=== PATIENT | male | born 1945 | race Caucasian/White ===

== ENCOUNTER 2018-08-28 20:59 | Inpatient (IN) | payer MEDICARE, OTHER ==
[~2018-08-28] VITALS: Ht 162.6 cm; Wt 115.6 kg
[2018-08-28] MEDS ORDERED: AMPICILLIN/SULBACTAM 3 GM in SODIUM CHLORIDE 0.9% 100 ML IV ONE (21:30)
[2018-08-28] MEDS ORDERED: VANCOMYCIN PER PHARMACY MC PRN (21:30)
[2018-08-28] MEDS ORDERED: SODIUM CHLORIDE FLUSH 10ML SYR IVF ONE (21:30)
[2018-08-28] MEDS ORDERED: VANCOMYCIN 1,700 MG in SODIUM CHLORIDE 0.9% 250 ML IV ONE (22:00)
[2018-08-28 22:02] LABS: BASOPHILS # (AUTO) 0.04 x10^3/uL (0-0.1); BASOPHILS % (AUTO) 1 % (0-1); EOSINOPHILS # (AUTO) 0.32 x10^3/uL (0-0.4); EOSINOPHILS % (AUTO) 4 % (1-7); LYMPHOCYTES # (AUTO) 1.25 x10^3/uL (1-3.4); LYMPHOCYTES % (AUTO) 15 % (22-44); MD NO; MEAN CORPUSCULAR HEMOGLOBIN 26.5 pg (27.5-34.5); MEAN CORPUSCULAR VOLUME 82.8 fL (81-97); MEAN PLATELET VOLUME 9.2 fL (7.4-10.4); MONOCYTES # (AUTO) 0.68 x10^3/uL (0.2-0.8); MONOCYTES % (AUTO) 8 % (2-9); NEUTROPHILS # (AUTO) 5.95 x10^3/uL (1.8-6.8); NEUTROPHILS % (AUTO) 72 % (42-75); PLATELET COUNT 215 x10^3/uL (130-400); RED BLOOD COUNT 5.53 x10^6/uL (4.38-5.82); RED CELL DISTRIBUTION WIDTH 16.3 % (9.4-14.8)
[2018-08-28 22:10] LABS: INTERNATIONAL NORMALIZED RATIO 1.24 (0.93-1.1)
[2018-08-28 22:13] LABS: ANION GAP 10 mmol/L (5-15); CHLORIDE 109 mmol/L (98-107)
[2018-08-28 22:18] LABS: ALANINE AMINOTRANSFERASE 24 U/L (12-78); ALKALINE PHOSPHATASE 92 U/L (45-117); BILIRUBIN,TOTAL 0.6 mg/dL (0.2-1.0); CREATININE 0.94 mg/dL (0.7-1.3); TOTAL PROTEIN 6.8 g/dL (6.4-8.2); TROPONIN I 0.025 ng/mL (0.000-0.045)
[2018-08-28] MEDS ORDERED: FUROSEMIDE 20 MG/2 ML IV ONE (22:30)
[2018-08-28] MEDS ORDERED: FUROSEMIDE 20 MG/2 ML ONE (22:59)
[2018-08-29] MEDS ORDERED: PHARMACOKINETIC MONITORING MC PRN (01:00)
[2018-08-29] MEDS ORDERED: IBUPROFEN 600 MG TABLET PO PRN (01:00)
[2018-08-29] MEDS ORDERED: DOCUSATE 100 MG CAPSULE PO PRN (01:00)
[2018-08-29] MEDS ORDERED: ONDANSETRON ODT 4 MG PO PRN (01:00)
[2018-08-29] MEDS ORDERED: VANCOMYCIN PER PHARMACY MC PRN (01:00)
[2018-08-29] MEDS ORDERED: ACETAMINOPHEN 325 MG TABLET PO PRN (01:00)
[2018-08-29] MEDS ORDERED: ENALAPRILAT 1.25 MG/ML, 2ML IVPush PRN (01:00)
[2018-08-29] MEDS ORDERED: FUROSEMIDE 20 MG/2 ML IV ONE (01:30)
[2018-08-29] MEDS ORDERED: PHARMACOKINETIC CONSULTATION MC ONE (01:30)
[2018-08-29] MEDS ORDERED: FUROSEMIDE 40 MG/4 ML IV ONE (01:35)
[2018-08-29] MEDS: INSULIN LISPRO 100 UNITS/ML, PEN SQ-INSULIN SCH ×5 (01:56→21:04)
[2018-08-29 02:25] VITALS: BP 164/82
[2018-08-29] MEDS: AMPICILLIN/SULBACTAM 3 GM in SODIUM CHLORIDE 0.9% 100 ML IV SCH ×3 (05:30→23:15)
[2018-08-29] MEDS: ENOXAPARIN 40 MG/0.4 ML SQ SCH (05:30)
[2018-08-29 07:09] VITALS: BP 152/81
[2018-08-29] MEDS: FUROSEMIDE 40 MG/4 ML IV SCH ×2 (08:11→17:02)
[2018-08-29] MEDS ORDERED: GLIP10TA13 PO (12:21)
[2018-08-29] MEDS ORDERED: CARV12.52 PO (12:21)
[2018-08-29] MEDS ORDERED: LISI30TA4 PO (12:21)
[2018-08-29] MEDS ORDERED: METF10007 PO (12:21)
[2018-08-29] MEDS ORDERED: FURO20TA3 PO (12:21)
[2018-08-29] MEDS ORDERED: GABA300C10 PO (12:21)
[2018-08-29 13:11] VITALS: BP 135/80
[2018-08-29] MEDS: LISINOPRIL 10 MG TABLET PO SCH (13:35)
[2018-08-29 14:02] LABS: HEMOGLOBIN A1C 10.7 % (4.2-6.3)
[2018-08-29 18:28] VITALS: BP 92/62
[2018-08-29] MEDS: CARVEDILOL 12.5 MG TABLET PO SCH (18:29)
[2018-08-29] MEDS: GABAPENTIN 300 MG CAPSULE PO SCH (21:02)
[2018-08-29] MEDS: VANCOMYCIN 2,000 MG in SODIUM CHLORIDE 0.9% 500 ML IV SCH (21:06)
[2018-08-30 01:18] VITALS: BP 120/71
[2018-08-30] MEDS: ENOXAPARIN 40 MG/0.4 ML SQ SCH (05:54)
[2018-08-30] MEDS: CARVEDILOL 12.5 MG TABLET PO SCH ×2 (05:54→18:16)
[2018-08-30] MEDS: AMPICILLIN/SULBACTAM 3 GM in SODIUM CHLORIDE 0.9% 100 ML IV SCH ×3 (05:55→22:41)
[2018-08-30 06:11] LABS: BASOPHILS # (AUTO) 0.04 x10^3/uL (0-0.1); BASOPHILS % (AUTO) 0 % (0-1); EOSINOPHILS # (AUTO) 0.39 x10^3/uL (0-0.4); EOSINOPHILS % (AUTO) 4 % (1-7); LYMPHOCYTES % (AUTO) 13 % (22-44); MD NO; MEAN CORPUSCULAR HGB CONC 32.3 g/dL (33.2-36.2); MEAN CORPUSCULAR VOLUME 83.7 fL (81-97); MONOCYTES # (AUTO) 0.83 x10^3/uL (0.2-0.8); MONOCYTES % (AUTO) 9 % (2-9); NEUTROPHILS # (AUTO) 6.63 x10^3/uL (1.8-6.8); NEUTROPHILS % (AUTO) 73 % (42-75); PLATELET COUNT 199 x10^3/uL (130-400); RED BLOOD COUNT 5.33 x10^6/uL (4.38-5.82); RED CELL DISTRIBUTION WIDTH 15.9 % (9.4-14.8)
[2018-08-30 06:23] LABS: ANION GAP 6 mmol/L (5-15); CALCIUM 7.9 mg/dL (8.5-10.1); CHLORIDE 103 mmol/L (98-107)
[2018-08-30 06:25] LABS: CREATININE 0.89 mg/dL (0.7-1.3)
[2018-08-30] MEDS: INSULIN LISPRO 100 UNITS/ML, PEN SQ-INSULIN SCH ×4 (07:00→20:53)
[2018-08-30 07:14] VITALS: BP 118/65
[2018-08-30] MEDS: GABAPENTIN 300 MG CAPSULE PO SCH (07:56)
[2018-08-30] MEDS: FUROSEMIDE 40 MG/4 ML IV SCH ×2 (07:56→16:49)
[2018-08-30] MEDS: LISINOPRIL 10 MG TABLET PO SCH (07:56)
[2018-08-30] MEDS ORDERED: MAGNESIUM SULFATE PMX 2GM/50ML 50 ML IV ONE (09:30)
[2018-08-30] MEDS: GUAIFENESIN ER 600 MG TABLET PO SCH ×2 (10:52→20:31)
[2018-08-30 13:54] VITALS: BP 116/74
[2018-08-30 18:15] VITALS: BP 144/79
[2018-08-30 20:20] VITALS: BP 101/64
[2018-08-30] MEDS: VANCOMYCIN 2,000 MG in SODIUM CHLORIDE 0.9% 500 ML IV SCH (20:31)
[2018-08-31 01:28] VITALS: BP 134/77
[2018-08-31] MEDS: AMPICILLIN/SULBACTAM 3 GM in SODIUM CHLORIDE 0.9% 100 ML IV SCH (06:39)
[2018-08-31] MEDS: ENOXAPARIN 40 MG/0.4 ML SQ SCH (06:39)
[2018-08-31] MEDS: CARVEDILOL 12.5 MG TABLET PO SCH ×2 (06:39→17:52)
[2018-08-31] MEDS: INSULIN LISPRO 100 UNITS/ML, PEN SQ-INSULIN SCH ×4 (07:00→21:23)
[2018-08-31 07:32] VITALS: BP 125/72
[2018-08-31] MEDS: GUAIFENESIN ER 600 MG TABLET PO SCH ×2 (09:22→21:22)
[2018-08-31] MEDS: FUROSEMIDE 40 MG/4 ML IV SCH ×3 (09:22→21:21)
[2018-08-31] MEDS: ASPIRIN 81 MG TABLET CHEW PO SCH (09:22)
[2018-08-31] MEDS: LISINOPRIL 10 MG TABLET PO SCH (09:22)
[2018-08-31] MEDS ORDERED: MAGNESIUM SULFATE PMX 2GM/50ML 50 ML IV ONE (10:30)
[2018-08-31 14:11] VITALS: BP 114/64
[2018-08-31 19:15] VITALS: BP 120/74
[2018-08-31] MEDS: ATORVASTATIN 40 MG TABLET PO SCH (21:22)
[2018-09-01 05:48] VITALS: BP 133/84
[2018-09-01] MEDS: CARVEDILOL 12.5 MG TABLET PO SCH ×2 (05:53→17:05)
[2018-09-01] MEDS: ENOXAPARIN 40 MG/0.4 ML SQ SCH (05:53)
[2018-09-01] MEDS: FUROSEMIDE 40 MG/4 ML IV SCH ×3 (05:59→17:04)
[2018-09-01 06:40] VITALS: BP 121/64
[2018-09-01] MEDS: LISINOPRIL 10 MG TABLET PO SCH (08:27)
[2018-09-01] MEDS: GUAIFENESIN ER 600 MG TABLET PO SCH ×2 (08:27→21:59)
[2018-09-01] MEDS: ASPIRIN 81 MG TABLET CHEW PO SCH (08:27)
[2018-09-01] MEDS: INSULIN LISPRO 100 UNITS/ML, PEN SQ-INSULIN SCH ×4 (08:27→22:00)
[2018-09-01 09:31] LABS: ALANINE AMINOTRANSFERASE 18 U/L (12-78); ALBUMIN 2.8 g/dL (3.4-5.0); ANION GAP 4 mmol/L (5-15); CALCIUM 8.1 mg/dL (8.5-10.1); CHLORIDE 95 mmol/L (98-107); CREATININE 1.01 mg/dL (0.7-1.3)
[2018-09-01 09:33] LABS: ALKALINE PHOSPHATASE 85 U/L (45-117); BILIRUBIN,TOTAL 0.8 mg/dL (0.2-1.0); TOTAL PROTEIN 6.9 g/dL (6.4-8.2)
[2018-09-01 14:00] VITALS: BP 117/72
[2018-09-01 19:16] VITALS: BP 104/64
[2018-09-01] MEDS: ATORVASTATIN 40 MG TABLET PO SCH (22:00)
[2018-09-01] MEDS: MAGNESIUM OXIDE 400 MG TABLET PO SCH (22:00)
[2018-09-02] VITALS (9 sets, daily range): BP systolic 106–132; BP diastolic 61–85
[2018-09-02 05:36] LABS: CHLORIDE 96 mmol/L (98-107)
[2018-09-02 05:39] LABS: BASOPHILS # (AUTO) 0.04 x10^3/uL (0-0.1); BASOPHILS % (AUTO) 0 % (0-1); EOSINOPHILS # (AUTO) 0.44 x10^3/uL (0-0.4); EOSINOPHILS % (AUTO) 4 % (1-7); LYMPHOCYTES # (AUTO) 1.17 x10^3/uL (1-3.4); LYMPHOCYTES % (AUTO) 12 % (22-44); MD NO; MEAN CORPUSCULAR HEMOGLOBIN 26.9 pg (27.5-34.5); MEAN CORPUSCULAR HGB CONC 32.4 g/dL (33.2-36.2); MEAN CORPUSCULAR VOLUME 82.9 fL (81-97); MEAN PLATELET VOLUME 8.7 fL (7.4-10.4); MONOCYTES # (AUTO) 0.95 x10^3/uL (0.2-0.8); MONOCYTES % (AUTO) 10 % (2-9); NEUTROPHILS # (AUTO) 7.25 x10^3/uL (1.8-6.8); NEUTROPHILS % (AUTO) 74 % (42-75); PLATELET COUNT 210 x10^3/uL (130-400); RED BLOOD COUNT 5.27 x10^6/uL (4.38-5.82); RED CELL DISTRIBUTION WIDTH 16.1 % (9.4-14.8)
[2018-09-02 05:47] LABS: ANION GAP 8 mmol/L (5-15); CALCIUM 8.3 mg/dL (8.5-10.1); CREATININE 0.97 mg/dL (0.7-1.3)
[2018-09-02 05:48] LABS: ALANINE AMINOTRANSFERASE 17 U/L (12-78); ALBUMIN 2.6 g/dL (3.4-5.0); ALKALINE PHOSPHATASE 82 U/L (45-117); BILIRUBIN,TOTAL 0.7 mg/dL (0.2-1.0); TOTAL PROTEIN 6.7 g/dL (6.4-8.2)
[2018-09-02] MEDS: FUROSEMIDE 40 MG/4 ML IV SCH ×3 (06:03→18:00)
[2018-09-02] MEDS: CARVEDILOL 12.5 MG TABLET PO SCH (06:03)
[2018-09-02] MEDS: ENOXAPARIN 40 MG/0.4 ML SQ SCH (06:03)
[2018-09-02] MEDS: LISINOPRIL 10 MG TABLET PO SCH (08:53)
[2018-09-02] MEDS: GUAIFENESIN ER 600 MG TABLET PO SCH ×2 (08:53→20:07)
[2018-09-02] MEDS: INSULIN LISPRO 100 UNITS/ML, PEN SQ-INSULIN SCH ×4 (08:53→20:13)
[2018-09-02] MEDS: MAGNESIUM OXIDE 400 MG TABLET PO SCH ×2 (08:54→20:07)
[2018-09-02] MEDS: ASPIRIN 81 MG TABLET CHEW PO SCH (08:54)
[2018-09-02] MEDS: CARVEDILOL 6.25 MG TABLET PO SCH (18:00)
[2018-09-02] MEDS: ATORVASTATIN 40 MG TABLET PO SCH (20:07)
[2018-09-02] MEDS ORDERED: INSULIN GLARGINE 100 UNITS/ML, PEN SQ-INSULIN SCH (21:00)
[2018-09-03 00:40] VITALS: BP 115/70
[2018-09-03] MEDS: FUROSEMIDE 40 MG/4 ML IV SCH ×3 (05:22→20:10)
[2018-09-03] MEDS: ENOXAPARIN 40 MG/0.4 ML SQ SCH (05:23)
[2018-09-03] MEDS: CARVEDILOL 6.25 MG TABLET PO SCH ×2 (05:23→17:22)
[2018-09-03] MEDS: INSULIN LISPRO 100 UNITS/ML, PEN SQ-INSULIN SCH ×4 (07:00→20:35)
[2018-09-03 07:14] LABS: ALANINE AMINOTRANSFERASE 17 U/L (12-78); ALBUMIN 2.7 g/dL (3.4-5.0); ANION GAP 7 mmol/L (5-15); CALCIUM 8.1 mg/dL (8.5-10.1); CHLORIDE 96 mmol/L (98-107); CREATININE 0.97 mg/dL (0.7-1.3)
[2018-09-03 07:16] LABS: ALKALINE PHOSPHATASE 92 U/L (45-117); BILIRUBIN,TOTAL 0.7 mg/dL (0.2-1.0)
[2018-09-03 08:26] VITALS: BP 112/72
[2018-09-03] MEDS: GUAIFENESIN ER 600 MG TABLET PO SCH ×2 (08:32→20:10)
[2018-09-03] MEDS: MAGNESIUM OXIDE 400 MG TABLET PO SCH ×2 (08:32→20:11)
[2018-09-03] MEDS: ASPIRIN 81 MG TABLET CHEW PO SCH (08:32)
[2018-09-03] MEDS: LISINOPRIL 10 MG TABLET PO SCH (08:32)
[2018-09-03 11:20] VITALS: BP 127/74
[2018-09-03 14:45] VITALS: BP 113/72
[2018-09-03] MEDS: ATORVASTATIN 40 MG TABLET PO SCH (20:10)
[2018-09-03 20:30] VITALS: BP 123/72
[2018-09-03] MEDS ORDERED: INSULIN GLARGINE 100 UNITS/ML, PEN SQ-INSULIN SCH (21:00)
[2018-09-04 03:39] VITALS: BP 122/73
[2018-09-04 06:20] LABS: CHLORIDE 94 mmol/L (98-107)
[2018-09-04 06:23] LABS: ANION GAP 7 mmol/L (5-15); CALCIUM 8.2 mg/dL (8.5-10.1); CREATININE 0.97 mg/dL (0.7-1.3)
[2018-09-04] MEDS: ENOXAPARIN 40 MG/0.4 ML SQ SCH (06:27)
[2018-09-04] MEDS: CARVEDILOL 6.25 MG TABLET PO SCH ×2 (06:27→17:13)
[2018-09-04] MEDS: INSULIN LISPRO 100 UNITS/ML, PEN SQ-INSULIN SCH ×4 (07:00→21:52)
[2018-09-04 07:16] VITALS: BP 103/58
[2018-09-04] MEDS: FUROSEMIDE 40 MG/4 ML IV SCH ×2 (10:03→21:50)
[2018-09-04] MEDS: GUAIFENESIN ER 600 MG TABLET PO SCH ×2 (10:03→21:49)
[2018-09-04] MEDS: MAGNESIUM OXIDE 400 MG TABLET PO SCH ×2 (10:03→21:49)
[2018-09-04] MEDS: ASPIRIN 81 MG TABLET CHEW PO SCH (10:03)
[2018-09-04 10:10] VITALS: BP 127/75
[2018-09-04] MEDS: LISINOPRIL 10 MG TABLET PO SCH (10:13)
[2018-09-04] MEDS: GABAPENTIN 300 MG CAPSULE PO SCH ×3 (11:22→21:49)
[2018-09-04 13:58] VITALS: BP 103/68
[2018-09-04 20:38] VITALS: BP 130/69
[2018-09-04] MEDS: ATORVASTATIN 40 MG TABLET PO SCH (21:50)
[2018-09-04] MEDS: INSULIN GLARGINE 100 UNITS/ML, PEN SQ-INSULIN SCH (21:52)
[2018-09-05 01:01] VITALS: BP 135/72
[2018-09-05 05:34] LABS: ALBUMIN 2.8 g/dL (3.4-5.0); ANION GAP 8 mmol/L (5-15); CALCIUM 8.7 mg/dL (8.5-10.1); CHLORIDE 93 mmol/L (98-107)
[2018-09-05 05:38] LABS: ALANINE AMINOTRANSFERASE 19 U/L (12-78); ALKALINE PHOSPHATASE 101 U/L (45-117); BILIRUBIN,TOTAL 0.8 mg/dL (0.2-1.0); CREATININE 1.03 mg/dL (0.7-1.3); TOTAL PROTEIN 7.5 g/dL (6.4-8.2)
[2018-09-05] MEDS: CARVEDILOL 6.25 MG TABLET PO SCH ×3 (05:56→17:48)
[2018-09-05] MEDS: ENOXAPARIN 40 MG/0.4 ML SQ SCH (05:56)
[2018-09-05 07:49] VITALS: BP 125/76
[2018-09-05] MEDS: INSULIN LISPRO 100 UNITS/ML, PEN SQ-INSULIN SCH ×4 (07:54→21:05)
[2018-09-05] MEDS: FUROSEMIDE 40 MG/4 ML IV SCH (07:54)
[2018-09-05] MEDS: GUAIFENESIN ER 600 MG TABLET PO SCH ×2 (07:55→20:58)
[2018-09-05] MEDS: GABAPENTIN 300 MG CAPSULE PO SCH ×3 (07:55→20:58)
[2018-09-05] MEDS: LISINOPRIL 10 MG TABLET PO SCH (07:55)
[2018-09-05] MEDS: ASPIRIN 81 MG TABLET CHEW PO SCH (07:55)
[2018-09-05] MEDS: MAGNESIUM OXIDE 400 MG TABLET PO SCH ×2 (07:55→20:58)
[2018-09-05] MEDS ORDERED: LIDOCAINE GEL 2%, 5ML TP ONE (11:30)
[2018-09-05] MEDS ORDERED: LIDOCAINE JELLY 2%, 30GM TP ONE (12:30)
[2018-09-05 14:00] VITALS: BP 131/76
[2018-09-05] MEDS ORDERED: LIDOCAINE JELLY 2%, 30GM TP PRN (16:00)
[2018-09-05] MEDS ORDERED: FUROSEMIDE 40 MG TABLET PO SCH (17:00)
[2018-09-05 17:49] VITALS: BP 121/70
[2018-09-05 20:12] VITALS: BP 111/66
[2018-09-05] MEDS: ATORVASTATIN 40 MG TABLET PO SCH (20:58)
[2018-09-05] MEDS: INSULIN GLARGINE 100 UNITS/ML, PEN SQ-INSULIN SCH (21:05)
[2018-09-06 02:55] VITALS: BP 120/71
[2018-09-06] MEDS: ENOXAPARIN 40 MG/0.4 ML SQ SCH (06:40)
[2018-09-06] MEDS: INSULIN LISPRO 100 UNITS/ML, PEN SQ-INSULIN SCH ×2 (06:46→11:35)
[2018-09-06 08:05] VITALS: BP 111/71
[2018-09-06] MEDS: ASPIRIN 81 MG TABLET CHEW PO SCH (08:26)
[2018-09-06] MEDS: LISINOPRIL 10 MG TABLET PO SCH (08:26)
[2018-09-06] MEDS: GUAIFENESIN ER 600 MG TABLET PO SCH (08:27)
[2018-09-06] MEDS: GABAPENTIN 300 MG CAPSULE PO SCH (08:27)
[2018-09-06] MEDS: CARVEDILOL 6.25 MG TABLET PO SCH (08:27)
[2018-09-06] MEDS: MAGNESIUM OXIDE 400 MG TABLET PO SCH (08:27)
[2018-09-06] MEDS ORDERED: FUROSEMIDE 40 MG TABLET PO SCH (09:00)
[2018-09-06] MEDS ORDERED: FURO40TA6 PO (10:55)
[2018-09-06] MEDS ORDERED: ATOR40TA78 PO (10:55)
[2018-09-06] MEDS ORDERED: CARV6.2512 PO (10:55)
[2018-09-06] MEDS ORDERED: MAGN400T50 PO (10:55)
[2018-09-06] MEDS ORDERED: ASPI-515 PO (10:55)
[2018-09-06] MEDS ORDERED: GABA300C10 PO (10:55)
[2018-09-06 12:30] VITALS: BP 103/51
== END 2018-09-06 17:02 | disposition home health service (06) | DRG 291 ==
LOC: ED 21:36 → EDIP 22:53 → 5SO 08-29 00:28
PROVIDERS: ADMIT Hospitalist; ATTEND Hospitalist
DX: I11.0 Hypertensive heart disease with heart failure (principal); J96.21 Acute and chronic respiratory failure with hypoxia; E46 Unspecified protein-calorie malnutrition; E87.3 Alkalosis; I47.2 Ventricular tachycardia; Z68.41 Body mass index [BMI] 40.0-44.9, adult; E66.01 Morbid (severe) obesity due to excess calories; I87.2 Venous insufficiency (chronic) (peripheral); E11.65 Type 2 diabetes mellitus with hyperglycemia; E83.42 Hypomagnesemia; G47.33 Obstructive sleep apnea (adult) (pediatric); I44.7 Left bundle-branch block, unspecified; I50.43 Acute on chronic combined systolic (congestive) and diastolic (congestive) heart failure; L98.499 Non-pressure chronic ulcer of skin of other sites with unspecified severity; I87.8 Other specified disorders of veins; J44.9 Chronic obstructive pulmonary disease, unspecified; K59.00 Constipation, unspecified; N43.3 Hydrocele, unspecified; T50.1X5A Adverse effect of loop [high-ceiling] diuretics, initial encounter; Z79.84 Long term (current) use of oral hypoglycemic drugs; Z82.5 Family history of asthma and other chronic lower respiratory diseases; Y92.89 Other specified places as the place of occurrence of the external cause; Z90.49 Acquired absence of other specified parts of digestive tract; Z85.038 Personal history of other malignant neoplasm of large intestine
CPT/HCPCS: 36415; 71045; 76870; 80048; 80053; 82962; 83036; 83605; 83735; 83880; 84145; 84484; 85025; 85610; 85730; 87040; 93005; 93306; 93922; 93975; 99285; G0378; J0295; J1650; J1940; J3370; J1815; J3475; J7040; J7050